=== PATIENT | female | born 1955 | race Asian ===

== ENCOUNTER 2023-01-23 20:58 | Emergency (ER) | payer SELFPAY ==
[2023-01-23 21:17] VITALS: BP 148/88
[2023-01-23 21:17] LABS: BILIRUBIN,URINE NEGATIVE (NEGATIVE); GLUCOSE, URINE (UA) NEGATIVE (NEGATIVE); KETONES,URINE (UA) NEGATIVE (NEGATIVE); LEUKOCYTE ESTERASE, URINE SMALL (NEGATIVE); NITRITE,URINE POSITIVE (NEGATIVE); OCCULT BLOOD,URINE SMALL (NEGATIVE); PROTEIN,URINE TRACE mg/dL (NEGATIVE); UROBILINOGEN,URINE 0.2 (NORMAL) E.U./dL (NORMAL)
[2023-01-23 21:18] LABS: CLARITY,URINE CLOUDY (CLEAR)
[2023-01-23] MEDS ORDERED: cefTRIAXone 1 GM VIAL IM STA (21:20)
[2023-01-23] MEDS ORDERED: PHENAZOPYRIDINE 100 MG TABLET PO STA (21:20)
[2023-01-23] MEDS ORDERED: LIDOCAINE 1% 2 ML VIAL MC ONE (21:20)
[2023-01-23 21:24] LABS: BACTERIA,URINE Many /HPF (None Seen); SQUAMOUS EPITHELIAL CELL,UR RARE Squamous (<= Few); WBC,URINE >25 /HPF (0-5)
--- NOTE | 2023-01-23 21:30 | ED Physician Documentation ---
PD HPI CHEST PAIN - Stated complaint Stated Complaint: - Chief complaint Chief Complaint: Abd Pain - History obtained from History obtained from: Patient - History of Present Illness Timing - onset: How many days ago (3) Timing - duration: Days (3) Timing - details: Gradual onset - Additional information Additional information: 67-year-old female is visiting from the [facility]. She states 3 days ago began to have dysuria and urinary frequency. She states tonight she had chills. No fever. No cough. No congestion. No nausea or vomiting. No back pain. No vaginal bleeding or discharge. Worse with urination. Similar to prior UTIs. Review of Systems Constitutional: reports: Chills. denies: Fever Respiratory: denies: Cough GI: denies: Vomiting, Diarrhea : reports: Dysuria, Frequency, Hesitancy Musculoskeletal: denies: Neck pain, Back pain Neurologic: denies: Headache PD PAST MEDICAL HISTORY - Past Medical History Past Medical History: No Cardiovascular: None Respiratory: None Neuro: None Endocrine/Autoimmune: None GI: None ANNUAL GIVING OFFICER: None : None HEENT: None Psych: None Musculoskeletal: None Derm: None - Past Surgical History Past Surgical History: Yes /ANNUAL GIVING OFFICER: section - Present Medications Home Medications: Ambulatory Orders Medication Instructions Recorded Confirmed Cefpodoxime Proxetil [Vantin] 100 mg PO Q12H #14 tablet 01/23/23 Phenazopyridine HCl [Pyridium] 200 mg PO TID PRN #6 tablet 01/23/23 - Allergies Allergies/Adverse Reactions: Allergies Allergy/AdvReac Type Severity Reaction Status Date / Time No Known Drug Allergies Allergy Verified 01/23/23 21:06 - Social History Does the pt smoke?: No Smoking Status: Never smoker Does the pt drink ETOH?: No Does the pt have substance abuse?: No - Immunizations Immunizations are current?: Yes - POLST Patient has POLST: No PD ED PE NORMAL - Vitals Vital signs reviewed: Yes - General General: Alert and oriented X 3, No acute distress - HEENT HEENT: PERRL, Moist mucous membranes - Neck Neck: Supple, no meningeal sign - Cardiac Cardiac: RRR, Strong equal pulses - Respiratory Respiratory: No respiratory distress, Clear bilaterally - Abdomen Abdomen: Soft, Non tender, Non distended - Back Back: No CVA TTP, No spinal TTP - Derm Derm: Warm and dry - Extremities Extremities: No edema, No calf tenderness / cord - Neuro Neuro: Alert and oriented X 3 - Psych Psych: Normal mood, Normal affect Results - Vitals Vitals: Vital Signs - 24 hr 01/23/23 01/23/23 21:06 21:11 Temperature 36.9 C Heart Rate 120 H Respiratory 16 18 Rate Blood Pressure 148/88 H O2 Saturation 97 Oxygen O2 Source Room air - Labs Labs: Laboratory Tests 01/23/23 21:03 Urine Color YELLOW Urine Clarity CLOUDY Urine pH 6.0 Ur Specific [place] 1.020 Urine Protein TRACE Urine Glucose (UA) NEGATIVE Urine Ketones NEGATIVE Urine Occult Blood SMALL H Urine Nitrite POSITIVE H Urine Bilirubin NEGATIVE Urine Urobilinogen 0.2 (NORMAL) Ur Leukocyte Esterase SMALL H Ur Microscopic Review INDICATED Urine Culture Comments Not Reportable PD Medical Decision Making - ED course Complexity details: reviewed results, re-evaluated patient, considered differential, d/w patient ED course: Patient is very well-appearing, nontoxic. Afebrile. No hypoxia. No respiratory distress. No CVA tenderness. No spinal tenderness. ED was given a dose of Rocephin and Pyridium. Urinalysis consistent with UTI. No evidence of pyelonephritis or sepsis Will place on oral antibiotics for home. Patient counseled regarding signs and symptoms for which I believe and urgent re-ev aluation would be necessary. Patient with good understanding of and agreement to plan and is comfortable going home at this time This document was made in part using voice recognition software. While efforts are made to proofread this document, sound alike and grammatical errors may occur. Departure - Departure Disposition: 01 Home, Self Care Clinical Impression: UTI (urinary tract infection) Qualifiers: Urinary tract infection type: acute cystitis Hematuria presence: without hematuria Qualified Code(s): N30.00 - Acute cystitis without hematuria Condition: Good Instructions: ED UTI Cystitis Female Follow-Up: your,doctor in 3 days if not better [Other] Prescriptions: Phenazopyridine HCl [Pyridium] 200 mg PO TID PRN #6 tablet PRN Reason: dysuria Cefpodoxime Proxetil [Vantin] 100 mg PO Q12H #14 tablet Comments: Your prescriptions were sent to [facility] in [place]. Please take all antibi otics until gone. Please return if you worsen.
[2023-01-23 21:43] VITALS: O2SAT 98
== END 2023-01-23 21:37 | disposition home or self-care (01) ==
LOC: ED 20:58
DX: N30.00 Acute cystitis without hematuria (principal)
CPT/HCPCS: 81001; 87086; 87181; 96372; 99283; A9270; 81003